=== PATIENT | female | born 1960 | race Caucasian/White ===

== ENCOUNTER 2019-04-01 07:01 | Day surgery (SDC) | payer BC ==
[~2019-04-01] VITALS: Ht 170.2 cm; Wt 91.8 kg
[~2019-04-01 07:01] MED LIST: ACET1TAB55 PO; NS 1,000 ML IV ONE
[2019-04-01] MEDS ORDERED: LIDOCAINE 2% INJ 100 MG/5 ML SDV (FOR ANES.) As Ordered ONE (07:35)
[2019-04-01] MEDS ORDERED: propofoL 200 MG/20 ML VIAL As Ordered ONE (07:35)
--- NOTE | 2019-04-01 08:49 | ROOR ---
Patient Name: Dorothy Austin Procedure Date: 04/01/2019 8:29 AM Date of : 1960 Age: 58 Room: [facility] Gender: Female Note Status: Finalized Procedure: Colonoscopy Indications: Change in bowel habits Providers: Isaiah ST MD Referring MD: MAT VARGAS DO Requesting Provider: Medicines: Monitored Anesthesia Care Complications: No immediate complications. Procedure: Pre-Anesthesia Assessment: - The heart rate, respiratory rate, oxygen saturations, blood pressure, adequacy of pulmonary ventilation, and response to care were monitored throughout the procedure. The Colonoscope was introduced through the anus and advanced to the terminal ileum, with identification of the appendiceal orifice and IC valve. The colonoscopy was performed without difficulty. The patient tolerated the procedure well. The quality of the bowel preparation was good. Findings: The perianal and digital rectal examinations were normal. Multiple medium-mouthed diverticula were found in the sigmoid colon. A 4 mm polyp was found in the sigmoid colon. The polyp was sessile. The polyp was removed with a cold snare. Resection and retrieval were complete. Small Internal Hemorrhoids. The exam was otherwise without abnormality on direct and retroflexion views. Impression: - Mild to moderate diverticulosis in the sigmoid colon. - One 4 mm polyp in the sigmoid colon, removed with a cold snare. Resected and retrieved. - Small Internal Hemorrhoids. - The examination was otherwise normal on direct and retroflexion views. Recommendation: - Use fiber, for example Citrucel, Fibercon, Konsyl or Metamucil. - Repeat colonoscopy in [address] MD Isaiah ST MD 04/01/2019 8:48:45 AM Electronically signed by Isaiah ST MD Number of Addenda: 0 Note Initiated On: 04/01/2019 8:29 AM Estimated Blood Loss: Estimated blood loss: none.
[2019-04-01 09:13] VITALS: BP 142/78
== END 2019-04-01 09:16 | disposition home or self-care (01) ==
LOC: M OPP 07:01
PROVIDERS: ATTEND Internal Medicine Gastroenterology
DX: D12.5 Benign neoplasm of sigmoid colon (principal); K57.30 Diverticulosis of large intestine without perforation or abscess without bleeding; K64.8 Other hemorrhoids; R19.4 Change in bowel habit

== ENCOUNTER 2024-08-13 07:48 | Day surgery (SDC) | payer MEDICARE ==
[~2024-08-13] VITALS: Ht 170.2 cm; Wt 75.3 kg
[~2024-08-13 07:48] MED LIST changes: -NS 1,000 ML IV ONE
[2024-08-13] MEDS ORDERED: LIDOCAINE 2% 100 MG/5 ML SDV (FOR ANES.) As Ordered ONE (09:23)
[2024-08-13] MEDS ORDERED: GLYCOPYRROLATE INJ 0.2 MG/ML 2 ML VIAL As Ordered ONE (09:27)
[2024-08-13 10:16] VITALS: TEMP 97.3
[2024-08-13 10:33] VITALS: BP 127/60; O2SAT 95
== END 2024-08-13 10:33 | disposition home or self-care (01) ==
LOC: M OPP 07:48
PROVIDERS: ATTEND Internal Medicine Gastroenterology
DX: Z12.11 Encounter for screening for malignant neoplasm of colon (principal); D12.6 Benign neoplasm of colon, unspecified; K57.30 Diverticulosis of large intestine without perforation or abscess without bleeding; K64.8 Other hemorrhoids; Z86.0100 Personal history of colon polyps, unspecified
CPT/HCPCS: 45380; 88305; J1596